=== PATIENT | female | born 1935 | race Caucasian/White ===

== ENCOUNTER → 2016-11-08 | Outpatient (CLI) | payer MEDICARE, OTHER ==
[~2016-11-08] MED LIST: AMITRYPTYLINE PO; ATENOLOL50 MG PO; AZITHROMYCIN250 MG PO; CANASA1000 MG/S1 RC; COATED ASPIRIN325 M1 PO; COLESTID1 GM PO; CYANOCOBALAM1000 MCG PO; FERROUS GL324 ( 36 ) PO; FOLIC ACID1 MG PO; FUROSEMIDE40 MG PO; FUROSEMIDE40 MG/5 ML PO; GABAPENTIN400 M2 PO; HYDRALAZINE HCL25 MG PO; ISORDIL PO; LEVAQUIN750 M1 PO; LOPRESSOR; LOVASTATIN20 M1 PO; MELOXICAM15 MG PO; METHOCARBAMOL500 MG PO; MIRALAX17 GM PO; NAMENDA10 MG PO; NAMENDA5 MG PO; NIFEDIPINE ER30 MG PO; NORCO 10-325 TA1 TAB PO; NORCO PO; PANTOPRAZOLE SO40 MG PO; PRAMIPEXOLE0.125 MG PO; PROTONIX20 MG PO; SENNA S; XYZAL5 MG PO; ZOCOR10 MG PO
--- NOTE | ~2016-11-08 | EKG ---
PATIENT: LYNETTE DONATO UNIT #: [id number] Ventricular Rate: 56 BPM Atrial Rate: 56 BPM P-R Interval: 190 ms QRS Duration: 82 ms Q-T Interval: 474 ms QTC Calculation(Bezet): 457 ms P [place]: 53 degrees Calculated R [place]: 20 degrees Calculated T [place]: 33 degrees Diagnosis Line: Sinus bradycardia Diagnosis Line: Otherwise normal ECG Diagnosis Line: When compared with ECG of 14-MAY-2015 06:45, Diagnosis Line: No significant change was found Diagnosis Line: Confirmed by PETRONA CLIFTON MD ([id number]) on 11/08/2016 Diagnosis Line: 6:47:50 PM INTERPRETING MD: ETIENNE CERRATO
[2016-11-08 07:46] LABS: HEMATOCRIT 33.7 % (35.0-45.0); HEMOGLOBIN 10.8 gm/dL (12.0-16.0); MEAN CELL VOLUME 82.5 FL (83-96); MEAN CORPUSCULAR HEMOGLOBIN 26.5 PG (28-34); MEAN CORPUSCULAR HGB CONC 32.2 g/dL (30-36); MEAN PLATELET VOLUME 6.8 FL (6.5-11.5); RED BLOOD COUNT 4.08 X10e (3.90-5.30); RED CELL DISTRIBUTION WIDTH 13.8 % (11.0-15.5); WHITE BLOOD COUNT 4.7 X10e3 (4.0-10.5)
[2016-11-08 08:05] LABS: PARTIAL THROMBOPLASTIN TIME 22.7 SECONDS (23.5-31.3); PROTHROMBIN TIME (PATIENT) 10.7 SECONDS (9.6-11.5)
[2016-11-08 08:10] LABS: BUN/CREATININE RATIO 16.87; CALCIUM SERUM 8.8 mg/dL (8.4-10.2); CREATININE SERUM 1.6 mg/dL (0.6-1.4); GLOM FILT RATE Estimated 30.3 mL/min (>60); POTASSIUM 3.9 mmol/L (3.5-5.1)
== END | disposition home or self-care (01) ==
LOC: CCVL 07:16
PROVIDERS: Internal Medicine Cardiovascular Disease
PROC: 4A023N7 Measurement of Cardiac Sampling and Pressure, Left Heart, Percutaneous Approach (ICD-10-PCS; principal; 2016-11-08)
PROC: B211YZZ Fluoroscopy of Multiple Coronary Arteries using Other Contrast (ICD-10-PCS; 2016-11-08)
DX: R07.9 Chest pain, unspecified (principal); N28.9 Disorder of kidney and ureter, unspecified; I10 Essential (primary) hypertension; E78.00 Pure hypercholesterolemia, unspecified; E78.5 Hyperlipidemia, unspecified; Z88.5 Allergy status to narcotic agent
CPT/HCPCS: 36415; 80048; 85027; 85610; 85730; 93005; C1769; C1887; C1894; J1644; J2250; J3010

== ENCOUNTER → 2016-11-22 | Outpatient (CLI) | payer MEDICARE, OTHER ==
[2016-11-22 11:33] LABS: BUN/CREATININE RATIO 17.85; CALCIUM SERUM 9.4 mg/dL (8.4-10.2); CREATININE SERUM 1.4 mg/dL (0.6-1.4); GLOM FILT RATE Estimated 35.6 mL/min (>60); POTASSIUM 4.4 mmol/L (3.5-5.1)
== END | disposition home or self-care (01) ==
LOC: CLAB 10:17
PROVIDERS: Specialist
DX: R94.4 Abnormal results of kidney function studies (principal)
CPT/HCPCS: 36415; 80048